=== PATIENT | male | born 1945 | race Caucasian/White ===

== ENCOUNTER 2017-07-30 13:15 | Emergency (ER) | payer OTHER ==
[~2017-07-30] VITALS: Ht 175.3 cm; Wt 113.4 kg
--- NOTE | 2017-07-30 13:28 | ED UPPER/LOWER EXTREMITY COMPL ---
History of Present Illness General Chief Complaint: Lower Extremity Problems Stated Complaint: PT HAS A CUT ON LT LEG Source: patient Exam Limitations: no limitations Vital Signs & Intake/Output Vital Signs & Intake/Output Vital Signs Date Time Temp Pulse Resp B/P B/P Pulse O2 O2 Flow FiO2 Mean Ox Delivery Rate 07/30 1502 99.4 87 16 127/66 96 Room Air 07/30 1436 99 Room Air 07/30 1327 95 18 143/82 99 Room Air Room Air Allergies Uncoded Allergies: Allergy Other N Med Allergies N Triage Nurses Notes Reviewed? yes Onset: Just prior to arrival Duration: hour(s): (1) Timing: no prior history Severity: moderate Severity Numbers: 5 Pain/Injury Location: Left: Leg. Method of Injury: laceration Modifying Factors: Improves With: immobilization. Worsens With: movement. HPI: pt is a 71-year-old male with history of hypertension presenting to the emergency department with chief complaint of laceration to left bowen that happened just prior to arrival. Pain is currently moderate achy and throbbing. He reports that he missed a step and hit his bowen directly on a slate step. Denies actual falling or any other injuries. Unsure of tetanus immunization. He reports that he was bleeding quite a bit so decided to come in for evaluation. Denies being on any blood thinners. (Darby Vo) Past History Travel History Traveled to [place] past 21 day No Medical History Any Pertinent Medical History? see below for history Surgical History Surgical History: non-contributory Psychosocial History What is your primary language [place] Family History Hx Contributory? No (Darby Vo) Review of Systems Review of Systems Constitutional: Reports: no symptoms. Comments Review of systems: See HPI, All other systems negative. Constitutional, no chills fever or weight loss HEENT: No visual changes no sore throat no congestion Cardiovascular: No chest pain ,palpitation Skin, no jaundice no rashes Respiratory: No dyspnea cough sputum or hemoptysis GI: No nausea no vomiting Muscle skeletal: no back pain, no neck pain, Neurologic: No numbness no confusion and no headaches Psych: No stress anxiety or depression,. Heme/endocrine: No bruising no bleeding no polyuria or polydipsia Immunology: No splenectomy or history of AIDS (Darby Vo) Physical Exam Physical Exam General Appearance: well developed/nourished, no apparent distress, alert, awake , comfortable Comments: Well-developed well-nourished person in no acute distress HEENT: Atraumatic, normocephalic Neck: normal Inspection Cardiovascular: Pedal pulses are 2+ bilaterally. Respiratory: No respiratory distress. Extremity: No edema no calf tenderness to palpation bilaterally. Full range of motion of lower extremities without difficulty or pain. Neuro: Alert oriented x3, motor sensory normal Skin: Subcutaneous, slightly irregular laceration approximately 4-5 cm in length over the distal left bowen, moderate active bleeding, appears to be a small arterial that is bleeding as well. No surrounding erythema or edema. No tenderness to palpation surrounding the area. No foreign bodies with palpation or inspection. Psych: Mood and affect is normal, memory and judgment is normal. (Darby Vo) Progress Differential Diagnosis: LACERTION, SKIN AVULSION, ABRASION, CONTUSION Plan of Care: Current Medications Sig/Jermaine Start time Last Medication Dose Stop Time Status Admin Lidocaine 20 ML ONCE ONE 07/30 1330 AC (Lidocaine 1%) 07/30 1331 Tetanus/Diphtheria 0.5 ML ONCE ONE 07/30 1330 AC Toxoids Adsorbed 07/30 1331 (Decavac) (Darby Vo) Departure Departure Time of Disposition: 153 Disposition: HOME OR SELF CARE Condition: Stable Clinical Impression Primary Impression: Laceration Referrals: Patient Has No Primary Care Dr (PCP/Family) Additional Instructions: Return in 2 days for wound check. Elevate your leg is much as possible. This will help control bleeding. Continue wearing pressure dressing for the next 2 days until he returns. Ice affected area as well as to help decreased blood flow to the area. Return for any worsening symptoms or concerns or if you dressing soaks through. Departure Forms: Customer Survey General Discharge Information (Darby Vo) PA/PERSONAL INJURY ATTORNEY Co-Sign Statement Statement: ED Attending supervision documentation- [X] I saw and evaluated the patient. I have also reviewed all the pertinent lab results and diagnostic results. I agree with the findings and the plan of care as documented in the PA's/PERSONAL INJURY ATTORNEY's documentation. [] I have reviewed the ED Record and agree with the PA's/PERSONAL INJURY ATTORNEY's documentation. [] Additions or exceptions (if any) to the PAs/PERSONAL INJURY ATTORNEY's note and plan are summarized below: [] (Dallas Paez DO) Procedures Laceration/Wound Repair Laceration/Wound Repair: Wound Location: lower extremity Wound's Depth, Shape: irregular, subcutaneous Wound Length (cm): 5 Wound Explored: clean, no foreign body removed, irrigated extensively Irrigated w/ Saline (ccs): 500 Betadine Prep? Yes Anesthesia: 1% lidocaine Volume Anesthetic (ccs): 10 Wound Debrided: minimal Wound Repaired With: sutures Suture Size/Type: 4:0, 3:0, nylon, chromic gut- 1 suture Number of Sutures: 15 Progress: toelrated procedure well. Pressure dressing placed. Several nitrate used to cauterize arterial after artery was tied off. (Baljinder PRATHER,Darby)
[2017-07-30 15:02] VITALS: BP 127/66
== END 2017-07-30 16:14 ==
LOC: ERH 13:15
DX: S81.812A Laceration without foreign body, left lower leg, initial encounter (principal); W22.8XXA Striking against or struck by other objects, initial encounter; Y92.9 Unspecified place or not applicable; Y93.9 Activity, unspecified
CPT/HCPCS: 90471; 90714

== ENCOUNTER 2017-08-01 08:25 | Emergency (ER) | payer OTHER ==
[~2017-08-01] VITALS: Ht 175.3 cm; Wt 113.4 kg
[2017-08-01 08:36] VITALS: BP 108/72
[2017-08-01] MEDS ORDERED: NORVASC5 M1 PO (08:52)
--- NOTE | 2017-08-01 08:53 | ED SKIN/ALLERGY COMPLAINT ---
History of Present Illness General Chief Complaint: Suture Removal/Wound Recheck Stated Complaint: WOUND CHECK Source: patient, old records Exam Limitations: no limitations Vital Signs & Intake/Output Vital Signs & Intake/Output ED Intake and Output 08/02 0000 08/01 1200 Intake Total Output Total Balance Patient 250 lb Weight Weight Reported by Patient Measurement Method Allergies Coded Allergies: No Known Allergies (08/01/17) Reconcile Medications Amlodipine Besylate (Norvasc) 5 MG TABLET 1 TAB PO DAILY HEART (Reported) Triage Note: SUTURE REMOVAL LEFT LOWER LEG Triage Nurses Notes Reviewed? yes Onset: Abrupt Duration: day(s): Timing: recent history Severity: moderate HPI: 71-year-old male presents emergency department for wound check. Patient was seen and evaluated 2 days ago and had laceration to left anterior bowen closed with sutures. Patient states that at that time he had significant bleeding and required internal sutures and is recommend he return in 2 days to assess for bleeding and check wound. Patient has had a pressure bandage for the past 2 days which was placed here in the emergency department. He has not noticed any increasing pain or drainage through bandage. (Erma Frey) Past History Travel History Traveled to [place] past 21 day No Medical History Any Pertinent Medical History? see below for history Cardiovascular: hypertension Tetanus Vaccine: 07/30/17 Surgical History Surgical History: non-contributory Psychosocial History What is your primary language Somali Tobacco Use: Quit >30 days ago ETOH Use: occasional use Illicit Drug Use: denies illicit drug use Family History Hx Contributory? No (Erma Frey) Review of Systems Review of Systems Constitutional: Reports: no symptoms. EENTM: Reports: no symptoms. Respiratory: Reports: no symptoms. Cardiovascular: Reports: no symptoms. GI: Reports: no symptoms. Genitourinary: Reports: no symptoms. Musculoskeletal: Reports: see HPI. Skin: Reports: see HPI. Neurological/Psychological: Reports: no symptoms. Hematologic/Endocrine: Reports: no symptoms. Immunologic/Allergic: Reports: no symptoms. All Other Systems: Reviewed and Negative (Erma Frey) Physical Exam Physical Exam General Appearance: well developed/nourished, no apparent distress, alert, awake Head: atraumatic, normal appearance Eyes: Bilateral: normal appearance. Ears, Nose, Throat: hearing grossly normal Neck: normal inspection, supple, full range of motion Respiratory: no respiratory distress Back: normal inspection, normal range of motion Extremities: 4cm laceration with stitches in place to left anterior bowen, no active bleeding or drainage, no surrounding swelling or erythema Neurologic/Psych: awake, alert, oriented x 3 Skin: normal color, warm/dry, see laceration as described above (Erma Frey) Progress Differential Diagnosis: abscess/cellulitis, urticaria, laceration, contusion Plan of Care: Laceration is healing appropriately without active bleeding today. Patient educated on wound care and given supplies needed for his wound. Bacitracin and sterile dressing applied here in the emergency department. Patient instructed to return in 8-10 more days for removal of stitches. He was reeducated on signs and symptoms of skin infection. Patient no acute distress, nontoxic appearing, ambulating without difficulty. The patient and his agree with the plan of care. (Erma Frey) Departure Departure Disposition: HOME OR SELF CARE Condition: Stable Clinical Impression Primary Impression: Visit for wound check Referrals: Patient Has No Primary Care Dr (PCP/Family) Additional Instructions: Return in 8-10 days for removal of stitches. Monitor for signs of infection such as redness, swelling, cloudy drainage from wound, increasing pain. Return sooner with any of these symptoms. Apply dressing as directed once a day or every other day. He may rinse gently with soap and water. If YOU detects bleeding please cover with large bandage and apply direct pressure for over 15 minutes. With any persistent bleeding please return to the emergency department. Please note that there might be incidental findings in your evaluation that are unrelated to the current emergency department visit. Please notify your primary care doctor about this emergency department visit in order to obtain and review all of the testing performed so that these incidental findings can be monitored as needed. If you had an x-ray performed, please understand that some fractures may not be seen on the initial set of x-rays. If your symptoms persist you might need a repeat set of x-rays to check for such a fracture. If you had a laceration evaluated, please understand that foreign bodies such as glass or wood may not be visible to the naked eye or on plain x-rays. If the wound becomes red, swollen, increasingly more painful or if there is any drainage from the wound, please have it reevaluated by a physician for the possibility of a retained foreign body. If you're unable to follow up as outlined in the discharge instructions please return to the emergency department. Thank you for choosing the [facility] Emergency Department for your care. It was a pleasure to serve you today. Departure Forms: Customer Survey General Discharge Information (Tiesha PRATHER,Erma Orozco) PA/MUSHROOM FARMER Co-Sign Statement Statement: ED Attending supervision documentation- x I saw and evaluated the patient. I have also reviewed all the pertinent lab results and diagnostic results. I agree with the findings and the plan of care as documented in the PA's/MUSHROOM FARMER's documentation. [] I have reviewed the ED Record and agree with the PA's/MUSHROOM FARMER's documentation. [] Additions or exceptions (if any) to the PAs/MUSHROOM FARMER's note and plan are summarized below: [] (Piper WILCOX,Flynn)
== END 2017-08-01 09:29 ==
LOC: ERH 08:25
DX: Z48.02 Encounter for removal of sutures (principal)

== ENCOUNTER 2017-08-10 07:40 | Emergency (ER) | payer OTHER ==
[~2017-08-10] VITALS: Ht 175.3 cm; Wt 113.9 kg
[~2017-08-10 07:40] MED LIST: NORVASC5 M1 PO
[2017-08-10 07:41] VITALS: BP 137/73
--- NOTE | 2017-08-10 07:46 | ED ANIMAL BITE/WOUND CHECK ---
History of Present Illness General Chief Complaint: Suture Removal/Wound Recheck Stated Complaint: SUTURE REMOVAL Source: patient, family, old records Exam Limitations: no limitations Vital Signs & Intake/Output Vital Signs & Intake/Output Vital Signs Date Time Temp Pulse Resp B/P B/P Pulse O2 O2 Flow FiO2 Mean Ox Delivery Rate 08/10 0741 98.1 71 16 137/73 99 Room Air Allergies Coded Allergies: No Known Allergies (08/01/17) Reconcile Medications Amlodipine Besylate (Norvasc) 5 MG TABLET 1 TAB PO DAILY HEART (Reported) Triage Note: 71 Y/O MALE REQUESTING SUTURE REMOVAL (15) FROM L LOWER EXTREMITY. SUTURES PLACED LAST SAT. PT DENIES COMPLAINTS. STATES SITE APPEARS TO BE HEALING WELL. Triage Nurses Notes Reviewed? yes HPI: Patient presents for suture removal. Patient has no complaints. There've been no signs of infection. There is no pain. There are no fevers or chills. There is no pus discharge. Past History Travel History Traveled to [place] past 21 day No Medical History Any Pertinent Medical History? see below for history Cardiovascular: hypertension Tetanus Vaccine: 07/30/17 Surgical History Surgical History: non-contributory Psychosocial History What is your primary language Malawian Tobacco Use: Never used ETOH Use: denies use Illicit Drug Use: denies illicit drug use Family History Hx Contributory? No Review of Systems Review of Systems Constitutional: Reports: no symptoms. Musculoskeletal: Reports: no symptoms. Skin: Reports: no symptoms. Immunologic/Allergic: Reports: no symptoms. Physical Exam Physical Exam General Appearance: well developed/nourished, no apparent distress, alert, awake Eyes: Bilateral: PERRL, EOMI. Extremities: normal range of motion, SUTURES READY FOR REMOVAL,NO SIGNS OF INFECTION Neurologic/Psych: no motor/sensory deficits, awake, alert, oriented x 3, normal gait, normal mood/affect Skin: normal color, warm/dry Progress Differential Diagnosis: SUTURE REMOVAL Plan of Care: REMOVE SUTURES Departure Departure Disposition: HOME OR SELF CARE Condition: Stable Clinical Impression Primary Impression: Visit for suture removal Referrals: Patient Has No Primary Care Dr (PCP/Family) Additional Instructions: LEAVE OPEC TO THE AIR RETURN FOR ANY CONCERNS OR SIGNS OF INFECTION Departure Forms: Customer Survey General Discharge Information
[2017-09-01] MEDS ORDERED: BACTRIM DS TAB1 EACH PO (15:39)
== END 2017-08-10 08:40 ==
LOC: ERH 07:40
DX: Z48.02 Encounter for removal of sutures (principal)